=== PATIENT | female | born 2000 | race Caucasian/White ===

== ENCOUNTER 2021-07-23 12:48 | Outpatient (CLI) | payer OTHER, SELFPAY ==
[2021-07-23 13:38] LABS: SARS-CoV-2 Ag Negative (Negative)
== END 2021-07-23 12:49 | disposition home or self-care (01) ==
LOC: CHSLAB 12:54
PROVIDERS: PCP Physician Assistant; Visit Provider Nurse Practitioner Psychiatric/Mental Health
DX: Z20.822 Contact with and (suspected) exposure to COVID-19 (principal)
CPT/HCPCS: 87426; C9803

== ENCOUNTER 2021-07-31 10:36 | Outpatient (CLI) | payer OTHER, SELFPAY ==
[2021-07-31 11:27] LABS: SARS-CoV-2 Ag Negative (Negative)
[2021-07-31 12:57] LABS: SARS-CoV-2 RNA PCR Negative (Negative)
== END 2021-07-31 10:37 | disposition home or self-care (01) ==
LOC: CHSLAB 10:38
PROVIDERS: PCP Family Medicine; Visit Provider Physician Assistant
DX: Z20.822 Contact with and (suspected) exposure to COVID-19 (principal)
CPT/HCPCS: 87426; C9803; U0003; U0005

== ENCOUNTER 2022-05-22 16:20 | Outpatient (CLI) | payer OTHER, SELFPAY ==
--- NOTE | ~2022-05-22 | XR_ITS ---
EXAMINATION: XR ankle RT min 3V DATE: 05/22/2022 16:41 INDICATION: Right ankle pain. Fall. TECHNIQUE: 4 views of right ankle were obtained. COMPARISON: None. FINDINGS: There is an oblique fracture of distal fibula with medial aspect of the fracture line 3 mm distal to the level of the tibial plafond. The distal fracture fragment demonstrates 2 mm posterolate ral displacement. Joint spaces are normal. There is ankle soft tissue swelling. IMPRESSION: 1. Oblique fracture of distal fibula. Reviewed, dictated and finalized at location A.
== END 2022-05-22 16:21 | disposition home or self-care (01) ==
LOC: CHSIMG 16:22
PROVIDERS: PCP Family Medicine; Visit Provider Registered Nurse
DX: S82.434A Nondisplaced oblique fracture of shaft of right fibula, initial encounter for closed fracture (principal); M25.571 Pain in right ankle and joints of right foot
CPT/HCPCS: 73610

== ENCOUNTER 2022-07-16 14:56 | Outpatient (RCR) | payer OTHER, SELFPAY ==
--- NOTE | 2022-07-16 17:09 | PTOPEVAL1 ---
Assessment and note entered by Sheila Landon, PT Evaluation Information Assessment Status Evaluation Diagnosis Closed fx of distal R fibula Onset 05/21/22 Subjective Information Margarette Granger reports she fractured her right distal fibula on 05/21/22 when she slid in the grass playing softball. She had surgery on for stabilization. She was put in a splint for 2 weeks and then was in a cast until 07/09/22. She was told to wear a brace for activity since being out of the cast. She is noting some pain with walking and being on her feet. 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 She is limited to walking and prolonged standing to 20 minutes or less. Reported Pain Level Pain Score 6: Self Report Assessment PT Clinical Summary Margarette Granger presents 8 weeks s/p right distal fibula fx w/ ORIF on 05/28/22. 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 She is unable to run currently. She objectively demonstrates decreased and painful right ankle and great toe active and passive ROM, decreased right ankle and toe strength, impaired gait, impaired balance, and decreased functional activities. She will benefit from skilled PT to address these physical and functional limitations. Plan of Care Interventions Electrical Stimulation,Hot Pack/Cold Pack, Intermittent Compression,Manual Therapy,Neuro Re- education,Patient/Caregiver Educati,Therapeutic Activities,Therapeutic Exercise PT Services Indicated Yes Treatment Frequency and 2 times a week for 12 visits Duration These treatments will address the objective and functional deficits as defined above. The patient will be advanced safely and appropriately in order for the patient to progress towards his/her prior level of function. Additional exercises will be introduced and as well as a comprehensive home exercise program upon discharge, if needed, ?to ensure carryover of functional gains achieved in the clinic. This treatment plan has been reviewed and agreement upon by the patient.
--- NOTE | 2022-08-06 12:24 | PTOPPROG ---
Assessment and note entered by Sheila Landon, PT Evaluation Information Assessment Status Progress Diagnosis Closed Fx of Distal R Fibula Onset 05/21/22 Subjective Information Margarette reports that her right ankle is a little more sore this week compared to last. She has been up on her feet more though. She notes she tries to rest and elevate her foot to help when it is sore. Pain and swelling is increased with prolonged walking and standing. She is also limited with running if she would need to do so. Assessment PT Clinical Summary Margarette Granger is now 11 weeks s/p right distal fibula fx w/ORIF on 05/28/22. She is reporting more pain in the right ankle this week compared to previous weeks however, she has been up on her feet walking and standing more. She is no longer wearing the brace either. She objectively demonstrates improved right ankle and great toe AROM, improved right ankle and toe strength, and improved gait. She continues to demonstrate deficits in right ankle plantarflexion AROM, right ankle plantarflexion strength, right ankle stability, right single leg balance, and gait. She will likely continue to benefit from skilled PT to further address ongoing physical and functional limitations. Plan of Care Interventions Gait Training,Hot Pack/Cold Pack,Intermittent Compression,Manual Therapy,Neuro Re-education, Patient/Caregiver Educati,Therapeutic Activities, Therapeutic Exercise PT Services Indicated Yes Treatment Frequency and 2 times a week for 6 visits Duration These treatments will address the objective and functional deficits as defined above. The patient will be advanced safely and appropriately in order for the patient to progress towards his/her prior level of function. Additional exercises will be introduced and as well as a comprehensive home exercise program upon discharge, if needed, ?to ensure carryover of functional gains achieved in the clinic. This treatment plan has been reviewed and agreement upon by the patient.
--- NOTE | 2022-09-03 15:07 | PTOPDC ---
Assessment and note entered by Sheila Landon, PT Evaluation Information Assessment Status Discharge Diagnosis closed fracture of distal right fibula Onset 05/21/22 Subjective Information Margarette Granger reports her right foot and ankle is doing better. She does not have pain currently but still gets soreness with single heel raises. She also c/o tightness in the right ankle. She has been performing exercises on her own and occasionally walks on a treadmill in between PT sessions. She denies difficulty with ADLs or work activities. Reported Pain Level Pain Score 0: Self Report Assessment PT Clinical Summary Margarette Granger has completed 12 skilled PT visits following a closed fracture of the distal R fibula . She is reporting ongoing stiffness in the right ankle but not very much pain. She objectively demonstrates improved right ankle and great toe AROM, improved right ankle and foot strength, improved gait, improved balance, and improved functional abilities. She still has mild deficits in functional strength of the right ankle and decreased running ability. However, she is independent in a home exercise program to continue addressing these deficits. She is able to jog for one minute with good mechanics and no right ankle pain. She will be discharged to an independent [facility]. Plan of Care Interventions Electrical Stimulation,Hot Pack/Cold Pack, Intermittent Compression,Manual Therapy,Neuro Re- education,Patient/Caregiver Educati,Therapeutic Activities,Therapeutic Exercise PT Services Indicated No Treatment Frequency and Discharge Duration
== END 2022-09-03 14:21 | disposition home or self-care (01) ==
LOC: CHSPT 14:56
PROVIDERS: Visit Provider Nurse Practitioner Family
DX: S82.491D Other fracture of shaft of right fibula, subsequent encounter for closed fracture with routine healing (principal)
CPT/HCPCS: 97016; 97110; 97112; 97140; 97161; 97530